=== PATIENT | female | born 1985 | race Caucasian/White ===

== ENCOUNTER 2020-12-13 16:39 | Emergency (ER) | payer MEDICAID, SELFPAY ==
[2020-12-13 17:23] VITALS: BP 0/0; PULSE 0; RESP 0; TEMP -17.7; TEMP 0
== END 2020-12-13 17:24 | disposition left against medical advice (07) ==
LOC: UTC 16:49
PROVIDERS: Emergency Provider Nurse Practitioner Family; PCP Nurse Practitioner Pediatrics
DX: Z53.21 Procedure and treatment not carried out due to patient leaving prior to being seen by health care provider (principal)